=== PATIENT | male | born 2000 | race Caucasian/White ===

== ENCOUNTER 2020-08-18 21:55 | Emergency (ER) | payer OTHER ==
[2020-08-19 00:20] LABS: BASOPHIL 0.4 % (0-2); EOSINOPHIL 0.2 % (0-5); HCT 46.5 % (42.0-52.0); HGB 16.2 g/dl (13.2-18.0); LYMPHOCYTE 12.4 % (15-48); MCH 30.1 pg (25.0-31.0); MCHC 34.8 g/dL (32.0-36.0); MCV 86.4 fL (78.0-100.0); MONOCYTE 6.8 % (0-12); MPV 11.5 fL (6.0-9.5); NEUTROPHIL 79.8 % (41-80); NRBC 0; PLT 208 K/uL (150-400); RBC 5.38 M/uL (4.70-6.00); RDW 11.6 % (11.5-14.0); WBC 10.4 K/uL (4.0-10.5)
[2020-08-19 00:26] LABS: BARBITURATES NEGATIVE (NEGATIVE); ECSTASY (MDMA) NEGATIVE (NEGATIVE); MARIJUANA (THC) NEGATIVE (NEGATIVE); METHADONE NEGATIVE (NEGATIVE); OPIATES NEGATIVE (NEGATIVE)
[2020-08-19 00:27] LABS: AMPHETAMINES NEGATIVE (NEGATIVE); BILIRUBIN NEGATIVE (NEGATIVE); BLOOD NEGATIVE Ery/uL (NEGATIVE); CLARITY CLEAR (CLEAR); COLOR YELLOW (YELLOW); GLUCOSE (U) NORMAL (NORMAL); LEUKOCYTES NEGATIVE Leu/uL (NEGATIVE); NITRITE NEGATIVE (NEGATIVE); OXYCODONE NEGATIVE (NEGATIVE); PROTEIN NEGATIVE (NEGATIVE); SPECIFIC GRAVITY 1.015 (1.001-1.030); UROBILINOGEN 0.2 mg/dL (0.2-1.0)
[2020-08-19 00:43] LABS: ALBUMIN 4.7 g/dL (3.4-5.0); ALKALINE PHOSHATASE 76 U/L (46-116); ALT 26 U/L (16-63); AST 16 U/L (15-37); BILIRUBIN - TOTAL 1.5 mg/dL (0.2-1.0); BUN 13 mg/dL (7-18); BUN/CREAT RATIO (CALC) 14.3 RATIO; C-REACTIVE PROTEIN <0.20 mg/dL (<=0.90); CHLORIDE 101 mmol/L (98-107); CO2 (BICARBONATE) 28 mmol/L (21-32); CREATININE 0.91 mg/dL (0.67-1.17); GLOBULIN (CALCULATION) 3.6 g/dL; GLUCOSE 102 mg/dL (74-106); POTASSIUM 3.6 mmol/L (3.5-5.1); TOTAL PROTEIN 8.3 g/dL (6.4-8.2)
[2020-08-19 01:09] LABS: CORONAVIRUS 2019 SARS-COV-2 NEGATIVE (NEGATIVE); INFLUENZA A NAA NEGATIVE (NEGATIVE)
[2020-08-19] MEDS ORDERED: ONDANSETRON ODT4 MG SL ×2 (01:48→01:49)
== END 2020-08-19 02:02 | disposition home or self-care (01) ==
LOC: FER 21:55
PROVIDERS: Emergency Medicine Emergency Medical Services
DX: B34.9 Viral infection, unspecified (principal); F17.210 Nicotine dependence, cigarettes, uncomplicated; Z88.0 Allergy status to penicillin; Z20.822 Contact with and (suspected) exposure to COVID-19
CPT/HCPCS: 36415; 71045; 80053; 80305; 81003; 84439; 84443; 85025; 86140; 93005; J2405; J7120; U0002

== ENCOUNTER 2020-10-10 21:13 | Emergency (ER) | payer OTHER ==
[~2020-10-10 21:13] MED LIST: ONDANSETRON ODT4 MG SL
[2020-10-10 21:50] LABS: BASOPHIL 0.8 % (0-2); EOSINOPHIL 1.3 % (0-5); HCT 44.1 % (42.0-52.0); HGB 15.4 g/dl (13.2-18.0); LYMPHOCYTE 44.8 % (15-48); MCHC 34.9 g/dL (32.0-36.0); MONOCYTE 8.6 % (0-12); NEUTROPHIL 44.1 % (41-80); NRBC 0; PLT 200 K/uL (150-400); RBC 5.13 M/uL (4.70-6.00); RDW 11.9 % (11.5-14.0); WBC 5.3 K/uL (4.0-10.5)
[2020-10-10 22:24] LABS: ALBUMIN 4.3 g/dL (3.4-5.0); ALKALINE PHOSHATASE 73 U/L (46-116); ALT 21 U/L (16-63); AST 10 U/L (15-37); BILIRUBIN - TOTAL 1.6 mg/dL (0.2-1.0); BUN 15 mg/dL (7-18); CHLORIDE 104 mmol/L (98-107); CO2 (BICARBONATE) 29 mmol/L (21-32); CREATININE 0.94 mg/dL (0.67-1.17); GLOBULIN (CALCULATION) 3.1 g/dL; GLUCOSE 102 mg/dL (74-106); POTASSIUM 3.7 mmol/L (3.5-5.1); TOTAL PROTEIN 7.4 g/dL (6.4-8.2)
[2020-10-10 22:25] LABS: C-REACTIVE PROTEIN < 0.20 mg/dL (<=0.90)
[2020-10-10 23:27] LABS: AMPHETAMINES NEGATIVE (NEGATIVE); BARBITURATES NEGATIVE (NEGATIVE); ECSTASY (MDMA) NEGATIVE (NEGATIVE); MARIJUANA (THC) NEGATIVE (NEGATIVE); METHADONE NEGATIVE (NEGATIVE); OPIATES NEGATIVE (NEGATIVE); OXYCODONE NEGATIVE (NEGATIVE)
[2020-10-11] MEDS ORDERED: ATARAX25 MG PO (00:10)
[2020-10-11] MEDS ORDERED: LOPRESSOR25 MG PO (00:10)
[2020-10-11] MEDS ORDERED: ATIVAN0.5 MG PO (00:10)
== END 2020-10-11 00:32 | disposition home or self-care (01) ==
LOC: FER 21:13
PROVIDERS: Emergency Medicine Emergency Medical Services
DX: R07.89 Other chest pain (principal); I49.3 Ventricular premature depolarization; R06.02 Shortness of breath; R42 Dizziness and giddiness; Z87.891 Personal history of nicotine dependence; Z88.0 Allergy status to penicillin
CPT/HCPCS: 36415; 71275; 80053; 80305; 84443; 84484; 85025; 86140; 93005; J2060; J7030; Q9967

== ENCOUNTER 2020-11-07 14:37 | Emergency (ER) | payer OTHER ==
[~2020-11-07 14:37] MED LIST changes: +ATARAX25 MG PO; +ATIVAN0.5 MG PO; +LOPRESSOR25 MG PO
[2020-11-07 15:37] LABS: BASOPHIL 0.6 % (0-2); EOSINOPHIL 1.1 % (0-5); HCT 43.9 % (42.0-52.0); HGB 15.8 g/dl (13.2-18.0); LYMPHOCYTE 28.4 % (15-48); MCH 31.1 pg (25.0-31.0); MCV 86.4 fL (78.0-100.0); NEUTROPHIL 58.1 % (41-80); NRBC 0; PLT 183 K/uL (150-400); RBC 5.08 M/uL (4.70-6.00); RDW 11.9 % (11.5-14.0); WBC 5.3 K/uL (4.0-10.5)
[2020-11-07 16:16] LABS: BILIRUBIN NEGATIVE (NEGATIVE); BLOOD NEGATIVE Ery/uL (NEGATIVE); CLARITY CLEAR (CLEAR); COLOR YELLOW (YELLOW); GLUCOSE (U) NORMAL (NORMAL); LEUKOCYTES NEGATIVE Leu/uL (NEGATIVE); NITRITE NEGATIVE (NEGATIVE); PROTEIN NEGATIVE (NEGATIVE); SPECIFIC GRAVITY 1.025 (1.001-1.030); UROBILINOGEN 0.2 mg/dL (0.2-1.0)
[2020-11-07 16:28] LABS: ALBUMIN 4.4 g/dL (3.4-5.0); BILIRUBIN - TOTAL 2.1 mg/dL (0.2-1.0); BUN/CREAT RATIO (CALC) 12.6 RATIO; CREATININE 0.95 mg/dL (0.67-1.17); MAGNESIUM 2.1 mg/dL (1.8-2.4); POTASSIUM 4.1 mmol/L (3.5-5.1); TOTAL PROTEIN 7.4 g/dL (6.4-8.2)
== END 2020-11-07 17:07 | disposition home or self-care (01) ==
LOC: FER 14:37
PROVIDERS: Emergency Medicine
DX: R07.89 Other chest pain (principal); I49.3 Ventricular premature depolarization; R10.13 Epigastric pain; Z88.0 Allergy status to penicillin; Z79.899 Other long term (current) drug therapy
CPT/HCPCS: 36415; 71045; 80053; 81003; 83735; 84443; 84484; 85025

== ENCOUNTER 2021-10-20 10:29 | Emergency (ER) | payer OTHER | END 2021-10-20 12:09 | disposition home or self-care (01) | LOC: FER 10:29 | DX: H57.89 Other specified disorders of eye and adnexa (principal); Z88.0 Allergy status to penicillin; W89.0XXA Exposure to welding light (arc), initial encounter; Y92.89 Other specified places as the place of occurrence of the external cause; Y99.0 Civilian activity done for income or pay | CPT/HCPCS: 99283 ==

== ENCOUNTER 2022-04-15 15:11 | Emergency (ER) | payer OTHER | END 2022-04-15 17:12 | disposition home or self-care (01) | LOC: FER 15:11 | DX: M25.572 Pain in left ankle and joints of left foot (principal); F17.290 Nicotine dependence, other tobacco product, uncomplicated; W19.XXXA Unspecified fall, initial encounter; Y92.89 Other specified places as the place of occurrence of the external cause; Y99.0 Civilian activity done for income or pay; Z88.0 Allergy status to penicillin | CPT/HCPCS: 73610 ==